=== PATIENT | male | born 1960 | race Caucasian/White ===

== ENCOUNTER 2022-10-25 11:37 | Emergency (ER) | payer MEDICARE, BC, SELFPAY ==
[2022-10-25] VITALS (21 sets, daily range): BP systolic 72–124; BP diastolic 56–99; PULSE 64–160; RESP 11–24; TEMP 36.6; O2SAT 89–98; BMI 27.3
--- NOTE | 2022-10-25 11:50 | ED.ARRPALP ---
HPI - Arrhythmia/Palpitations General Time Seen by Provider: 11:50 Date Seen: 10/25/22 Chief Complaint: Arrhythmia/Palpitations Stated Complaint: afib Time Seen by Provider: 10/25/22 11:44 Source: patient and RN notes reviewed Mode of arrival: ambulatory Limitations: no limitations History of Present Illness HPI narrative: Patient is a 62-year-old male coming in with concern for episode of atrial fibrillation. Patient awoke this morning at 6, got up to go to the bathroom and went to lay back on the couch. He was not in any arrhythmia disturbance at that time. When he woke up from sleeping on the couch, could feel he was in atrial fibrillation. He believes he has been cardioverted before, does report to ablation is a. He is followed by [facility] [place]. He has a little shortness of breath with walking but none at rest, no chest pain. Can feel his heart racing but otherwise no acute symptoms with this. No alcohol use, has not been ill with anything. MD complaint: atrial fibrillation Related Data Home Medications Medication Instructions Recorded Confirmed amlodipine 10 mg tablet 10 mg PO DAILY 10/25/22 10/25/22 atorvastatin 20 mg tablet 20 mg PO DAILY 10/25/22 10/25/22 carbamazepine 200 mg tablet PO 10/25/22 dofetilide 500 mcg capsule 500 mcg PO 10/25/22 lisinopril 40 mg tablet 40 mg PO DAILY 10/25/22 10/25/22 metoprolol tartrate 25 mg tablet mg PO 10/25/22 omeprazole 20 mg capsule,delayed 20 mg PO DAILY 10/25/22 10/25/22 release tamsulosin 0.4 mg capsule 0.4 mg PO DAILY 10/25/22 10/25/22 warfarin 5 mg tablet mg PO 10/25/22 Allergies Allergy/AdvReac Type Severity Reaction Status Date / Time phenytoin [From Dilantin] Allergy Mild Verified 10/25/22 11:46 Review of Systems Status of ROS: Reports: 6 or more systems reviewed and unremarkable except as noted in History and below PFSH PFS Social History Smoking Status: Unknown if ever smoked Exam Const: Vital Signs, click to edit/add: Vital Signs - 24 hr 10/25/22 11:43 10/25/22 11:53 10/25/22 12:30 Temperature 97.8 F Pulse Rate 153 H Pulse Rate [Pulse Oximeter] 160 H Respiratory Rate 18 Blood Pressure 99/79 Blood Pressure [Ri ght Upper Arm] 116/99 H Pulse Oximetry 95 94 94 Oxygen Delivery Me thod Room Air 10/25/22 12:31 10/25/22 12:32 10/25/22 12:45 Temperature Pulse Rate 152 H 153 H 151 H Pulse Rate [Pulse Oximeter] Respiratory Rate Blood Pressure 103/81 Blood Pressure [Ri ght Upper Arm] Pulse Oximetry 94 94 93 Oxygen Delivery Me thod 10/25/22 12:46 10/25/22 12:47 10/25/22 13:00 Temperature Pulse Rate 150 H 151 H 132 H Pulse Rate [Pulse Oximeter] Respiratory Rate Blood Pressure 94/78 Blood Pressure [Ri ght Upper Arm] Pulse Oximetry 91 89 95 Oxygen Delivery Me thod 10/25/22 13:01 10/25/22 13:02 10/25/22 13:08 Temperature Pulse Rate 135 H 114 H 68 Pulse Rate [Pulse Oximeter] Respiratory Rate 23 Blood Pressure 79/56 L 72/62 L 95/76 Blood Pressure [Ri ght Upper Arm] Pulse Oximetry 95 91 98 Oxygen Delivery Me thod 10/25/22 13:09 10/25/22 13:13 10/25/22 13:14 Temperature Pulse Rate 67 67 66 Pulse Rate [Pulse Oximeter] Respiratory Rate 12 18 17 Blood Pressure 114/88 120/87 Blood Pressure [Ri ght Upper Arm] Pulse Oximetry 97 97 97 Oxygen Delivery Me thod 10/25/22 13:15 10/25/22 13:17 Temperature Pulse Rate 64 67 Pulse Rate [Pulse Oximeter] Respiratory Rate 11 L 24 Blood Pressure 124/86 Blood Pressure [Ri ght Upper Arm] Pulse Oximetry 98 96 Oxygen Delivery Me thod This 8-year-old male is alert interactive no apparent distress. Sclera clear, face atraumatic, able speak in complete sentences. No GI venous tension, no thyromegaly masses or nodules. Lungs are clear, good air entry, no wheezing or crackles. CV is fast irregular, cannot hear any murmur. Abdomen is soft, no rebound or guarding, no organomegaly. No lower extremity edema. Documenting provider has reviewed patient's vital signs: yes Course Course ED Course: Patient is in atrial fibrillation with RVR. He will be on cardiac monitoring, pulse oximetry. Will get a portable chest x-ray to ensure no overt CHF. Will get full complement of labs. Establish an IV, give some IV fluids and plan for 5 mg IV metoprolol to slow the rhythm. May proceed with cardioversion since he is anticoagulated and he knows the onset of this. Will make sure electrolytes and troponin are okay. Reevaluation(s) Time of Reevaluation #1: 13:09 Reevaluation #1: Nursing staff came to get me as his blood pressure was worsening, most recent 1 was 72/62. Went to assess the patient, he is lying on the bed and is not feeling any chest pain, no shortness of breath, not lightheaded. He has had about 1/2 of the normal saline in. He has not gotten any IV metoprolol as blood pressures have been trending down. As we are in they were preparing for a emergent cardioversion due to hypotension, patient sat up to have his pads put on, had a brief little pause on the monitor, PVC and then went into sinus rhythm on the monitor. We will be getting a confirmatory EKG. He states he can feel that he has converted back into sinus. Will also update [facility], have staff paging them for me. Time of Reevaluation #2: 13:48 Reevaluation #2: Patient remains in sinus rhythm. Have reviewed my conversation with the customer insight analyst at [place]. Plan will be to discharge to home for outpatient follow-up. Return to ER with recurrent atrial fibrillation episodes. Consultations Consultation #1: Spoke with Dr. Sommer on-call for [facility]. Patient does see Dr. Mei in EP. He is on Tikosyn, last had normal biventricular function 2016. Thus, echo should be updated. They will get a note in to the EP Clinic for follow-up. Time: 13:24 Vital Signs Vital signs: Initial Vital Signs Temperature 97.8 F 10/25/22 11:43 Temperature Source Temporal Artery Scan 10/25/22 11:43 Pulse Rate 160 H 10/25/22 11:43 Respiratory Rate 18 10/25/22 11:43 Blood Pressure 116/99 H 10/25/22 11:43 Blood Pressure Mean 104 10/25/22 11:43 Blood Pressure Position Supine 10/25/22 11:43 Pulse Oximetry 95 10/25/22 11:43 Oxygen Delivery Method Room Air 10/25/22 11:43 Vital Signs Temperature 97.8 F 10/25/22 11:43 Pulse Rate 160 H 10/25/22 11:43 Respiratory Rate 18 10/25/22 11:43 Blood Pressure 116/99 H 10/25/22 11:43 Pulse Oximetry 95 10/25/22 11:43 Oxygen Delivery Method Room Air 10/25/22 11:43 Temperature 97.8 F 10/25/22 11:43 Pulse Rate 67 10/25/22 13:17 Respiratory Rate 24 10/25/22 13:17 Blood Pressure 124/86 10/25/22 13:17 Pulse Oximetry 96 10/25/22 13:17 Oxygen Delivery Method Room Air 10/25/22 11:43 MDM - Arrhythmia/Palpitations Lab Data Attestation: I reviewed the patient's lab results. Labs: Lab Results 10/25/22 10/25/22 Range/Units 11:54 12:15 WBC 7.64 (4.50-11.00) K/uL RBC 5.87 (4.30-5.90) m/uL Hgb 18.5 H (13.5-17.5) gm/dL Hct 53.7 H (37.0-53.0) % MCV 92 (80-100) fL MCH 32 (26-34) pg MCHC 35 (32-36) gm/dL RDW Coeff of Eze 12.5 (11.5-15.5) % Plt Count 239 (140-440) K/uL Neut % (Auto) 81.9 H (42.0-72.0) % Lymph % (Auto) 11.0 L (20-44) % [place] % (Auto) 6.0 (0.0-11.0) % Eos % (Auto) 0.7 (0.0-7.0) % Baso % (Auto) 0.1 (0.0-3.0) % Neut # (Auto) 6.30 (1.7-7.0) K/uL Lymph # (Auto) 0.80 L (0.90-2.90) K/uL [place] # (Auto) 0.50 (0.00-0.90) K/UL Eos # (Auto) 0.05 (0.00-0.50) K/uL Baso # (Auto) 0.01 (0.00-0.30) K/uL Abs Immat Gran (auto) 0.02 (0.00-0.30) K/uL Imm/Tot Granulo (auto) 0.3 % INR 2.10 H (0.91-1.10) Sodium 137 (135-149) mmol/L Potassium 4.3 (3.6-5.1) mmol/L Chloride 105 (96-114) mmol/L Carbon Dioxide 24 (20-32) mmol/L Anion Gap 8 (7-15) mEq/L BUN 18 (7-30) mg/dL Creatinine 0.7 (0.5-1.5) mg/dL Estimated Creat Clear 115.87 Estimated GFR 105 ml/min Glucose 153 H (60-115) mg/dL Calcium 10.6 (8.4-10.6) mg/dL Magnesium 2.4 (1.5-2.6) mg/dL Total Bilirubin 0.6 (0.1-1.5) mg/dL AST 54 H (12-35) U/L ALT 38 (4-50) U/L Alkaline Phosphatase 79 (40-150) U/L NT-Pro-B Natriuret Pep 716 pg/mL Total Protein 7.3 (6.0-8.3) g/dL Albumin 4.3 (3.3-5.0) g/dL TSH 1.150 (0.270-4.200) uIU/mL POC Troponin I 0.02 (0.01-0.04) ng/ml Imaging Data Chest x-ray: Attestation: I have reviewed the pertinent imaging results. My impression: Do not see any CHF, cardiac silhouette looks borderline enlarged. Await Radiology over-read. Radiologist's impression: Patient: SARA RAMIRES Facility:?[facility] Patient ID:?[id number] Site Patient ID:?[id number]. Site :?[id number] Study:?XRay Chest 1VIEW-10/25/2022 12:13:42 PM Ordering Physician:Katharina Hernández Final Report: Indication: Arrythmia Technique: Chest 1 view Comparison: Chest x-ray 11/13/2017 Findings/Impression: Cardiovascular and mediastinum: Borderline cardiomegaly with aortic tortuosity and atherosclerotic calcification. Lungs and pleural space: Lungs are clear. No sign of infiltrate or mass. No sign of pleural effusion. No pneumothorax. Bones and soft tissues: Status post median sternotomy. Old healed left mid clavicular fracture. Widening of the right acromioclavicular space suggesting prior trauma or distal clavicular resection. Narrowing of the right acromial humeral distance consistent with rotator cuff disease. Dictated by Brown Chandler MD @ 10/25/2022 12:43:34 PM (Electronic Signature) ECG Data Attestation: I personally reviewed and interpreted this ECG as follows: ECG interpretation date: 10/25/22 ECG interpretation time: 12:00 Prior ECG tracings: not available for review (Regular narrow complex tachycardia at 155 beats per minute. This could be a flutter, seems quite regular to be a atrial fibrillation.) Interpretation: Patient has some natural slowing of his rhythm on his own on the monitor, nursing staff obtained a followup EKG that shows likely atrial fibrillation, do see an occasional P-wave that I believe I am seen in some of the larger pauses between QRS complexes. Rate is 118. This EKG is from 12:53 p.m. Follow-up EKG at 1:12 p.m. is showing a sinus rhythm, 65 beats per minute, no ST or T-wave changes that are concerning. Discharge Plan Discharge Clinical Impression: Atrial fibrillation with rapid ventricular response Patient Disposition: Home, Self-Care Condition: Stable Instructions: A-fib (Atrial Fibrillation) (ED) Additional Instructions: Need to get scheduled in clinic for outpatient follow-up, have them schedule you for an updated echo. You should be hearing from the electrophysiology clinic at [facility] for follow-up appointment. Stay on your current medications. INR today was 2.1. If you have recurrent arrhythmia episodes, return for further evaluation in the interim. Activity Level: Activity as Tolerated Prescriptions: No Action atorvastatin 20 mg tablet 20 mg PO DAILY carbamazepine 200 mg tablet PO tamsulosin 0.4 mg capsule 0.4 mg PO DAILY amlodipine 10 mg tablet 10 mg PO DAILY warfarin 5 mg tablet PO omeprazole 20 mg capsule,delayed release(DR/EC) 20 mg PO DAILY lisinopril 40 mg tablet 40 mg PO DAILY dofetilide 500 mcg capsule 500 mcg PO metoprolol tartrate 25 mg tablet PO Follow Up/Referrals: Paul Olson MD [Primary Care Provider] - Stand Alone Forms: [employer] Info Instructions
--- NOTE | 2022-10-25 11:54 | CRLHL7_ITS ---
For Patients: As a result of the Century Cures Act, medical imaging exams and procedure reports are released immediately into your electronic medical record. You may view this report before your referring provider. If you have questions, please contact your health care provider. Indication: Arrythmia Technique: Chest 1 view Comparison: Chest x-ray 11/13/2017 Findings/Impression: Cardiovascular and mediastinum: Borderline cardiomegaly with aortic tortuosity and atherosclerotic calcification. Lungs and pleural space: Lungs are clear. No sign of infiltrate or mass. No sign of pleural effusion. No pneumothorax. Bones and soft tissues: Status post median sternotomy. Old healed left mid clavicular fracture. Widening of the right acromioclavicular space suggesting prior trauma or distal clavicular resection. Narrowing of the right acromial humeral distance consistent with rotator cuff disease. Dictated by Brown Chandler MD @ 10/25/2022 12:43:34 PM (Electronically Signed)
[2022-10-25 12:29] LABS: Basophils Absolute Auto 0.01 K/uL (0.00-0.30); Basophils Percent Auto 0.1 % (0.0-3.0); Eosinophils Absolute Auto 0.05 K/uL (0.00-0.50); Eosinophils Percent Auto 0.7 % (0.0-7.0); Hematocrit 53.7 % (37.0-53.0); Hemoglobin* 18.5 gm/dL (13.5-17.5); Immature Granulocytes Abs Auto 0.02 K/uL (0.00-0.30); Immature Granulocytes Pct Auto 0.3 %; Mean Corpuscular HGB Conc 35 gm/dL (32-36); Mean Corpuscular Hemoglobin 32 pg (26-34); Mean Corpuscular Volume 92 fL (80-100); Neutrophils Percent Auto 81.9 % (42.0-72.0); Platelet Count* 239 K/uL (140-440); RDW Coefficient of Variation % 12.5 % (11.5-15.5); Red Blood Count 5.87 m/uL (4.30-5.90); White Blood Count* 7.64 K/uL (4.50-11.00)
[2022-10-25 12:35] LABS: Slide Review Reflex No
[2022-10-25 12:35] LABS: Troponin, Point-of-Care* 0.02 ng/ml (0.01-0.04)
[2022-10-25] MEDS: 0.9 % SODIUM CHLORIDE 1000 ml 1,000 ML IV (12:37)
[2022-10-25 12:41] LABS: Albumin* 4.3 g/dL (3.3-5.0); Chloride* 105 mmol/L (96-114)
[2022-10-25 12:42] LABS: Potassium* 4.3 mmol/L (3.6-5.1); Prothrombin Time 24.7 Seconds; Sodium* 137 mmol/L (135-149)
[2022-10-25 12:44] LABS: Alkaline Phosphatase* 79 U/L (40-150); Anion Gap 8 mEq/L (7-15); Aspartate Amino Transferase* 54 U/L (12-35); Bilirubin Total* 0.6 mg/dL (0.1-1.5); Blood Urea Nitrogen* 18 mg/dL (7-30); Carbon Dioxide* 24 mmol/L (20-32); Creatinine* 0.7 mg/dL (0.5-1.5); Est. Creatinine Clearance* 115.87; Estimated Glomerular Filt Rate 105 ml/min; Glucose* 153 mg/dL (60-115); Total Protein* 7.3 g/dL (6.0-8.3)
[2022-10-25 12:45] LABS: Alanine Aminotransferase* 38 U/L (4-50); Calcium* 10.6 mg/dL (8.4-10.6); Magnesium* 2.4 mg/dL (1.5-2.6)
[2022-10-25 12:54] LABS: NT Pro B Type NatriureticPept* 716 pg/mL
--- NOTE | 2022-10-25 12:56 | ED.NURSE ---
Pt HR slowing to 120-130 bpm. Repeat EKG done and shown to .
--- NOTE | 2022-10-25 13:10 | ED.NURSE ---
Pt BPs noted to be trending lower, 70's systolic. MD Franz notified. MD Franz and MD Jasso in room to exam pt and preparing for emergent cardioversion. Pacer pads applied to pt and end tidal NC applied. When pt sat up in bed for pacer pad application to back, pt HR converted back to NSR. Pt BP improved to 120 systolic. Repeat EKG done and given to .
== END 2022-10-25 13:59 | disposition home or self-care (01) ==
PROVIDERS: Emergency Provider Family Medicine; PCP Family Medicine
DX: I48.91 Unspecified atrial fibrillation (principal)
CPT/HCPCS: 36415; 71045; 80053; 83735; 83880; 84443; 84484; 85025; 85610; 93005; 94761; 96361; 96374; 99284; 99285; 99291; J7030

== ENCOUNTER 2022-11-18 17:21 | Emergency (ER) | payer MEDICARE, BC, SELFPAY ==
[2022-11-18] VITALS (9 sets, daily range): BP systolic 97–128; BP diastolic 70–87; PULSE 54–166; RESP 24; TEMP 36.1; O2SAT 90–99; BMI 28.9
--- NOTE | 2022-11-18 17:53 | ED.GENADULT ---
HPI - General Adult General Chief complaint: Arrhythmia/Palpitations Stated complaint: Afib Time Seen by Provider: 11/18/22 17:42 History of Present Illness HPI narrative: Pt reports being in A Fib since 1529. Diaphoretic in triage. SOB, dizzy. Was recently in 62-year-old man presenting to the emergency department with concern of atrial fibrillation. He is quite clear that this started about 2-1/2 hours ago. He feels lightheaded little short of breath although at rest not so much, he notes himself to be sweaty. Was cardioverted in this department 3 weeks ago. History of a number of ablation set [place]. Known history of atrial fibrillation with RVR. Otherwise in usual state of health. No weight gain in fact he says he has been losing weight generally. He is saying just shock me. He admits that may have not kept up with his fluid intake today and was experiencing a little more stress otherwise. Related Data Home Medications Medication Instructions Recorded Confirmed amlodipine 10 mg tablet 10 mg PO DAILY 10/25/22 11/18/22 atorvastatin 20 mg tablet 20 mg PO DAILY 10/25/22 11/18/22 carbamazepine 200 mg tablet PO 10/25/22 dofetilide 500 mcg capsule 500 mcg PO Q12H 10/25/22 11/18/22 lisinopril 40 mg tablet 40 mg PO DAILY 10/25/22 11/18/22 metoprolol tartrate 25 mg tablet 25 mg PO 10/25/22 omeprazole 20 mg capsule,delayed 20 mg PO DAILY 10/25/22 11/18/22 release tamsulosin 0.4 mg capsule 0.4 mg PO DAILY 10/25/22 11/18/22 warfarin 5 mg tablet mg PO 10/25/22 Allergies Allergy/AdvReac Type Severity Reaction Status Date / Time phenytoin [From Dilantin] Allergy Mild Verified 11/18/22 17:56 Review of Systems Status of ROS: Reports: 6 or more systems reviewed and unremarkable except as noted in History and below PFSH PFSH Social History Smoking Status: Unknown if ever smoked Do you use any of these nicotine containing products: None Second hand tobacco smoke exposure: No How often do you have a drink containing alcohol: never How often do you have six or more drinks on one occasion: Never AUDIT-C Alcohol total score: 0 Non-prescribed substance use: denies use service: No Exam Narrative: Exam Narrative: Pleasant. Seems a little uncomfortable. Conversing easily. Subtly breathless though. Oropharynx is low sticky. Lungs are clear. Heart is in a tachycardic I believe generally regular rhythm. Skin is warm and dry though little sticky over the neck and head. Scattered skin tags in spears hemangiomas. There is prominent mid left clavicle. Extremities are well perfused. Without edema lower extremities. Const: Vital Signs, click to edit/add: Vital Signs - 24 hr 11/18/22 17:40 11/18/22 18:03 11/18/22 18:28 Temperature 97 F L Pulse Rate 64 Pulse Rate [Pulse Oximeter] 166 H Respiratory Rate 24 Blood Pressure Blood Pressure [Ri ght Upper Arm] 97/70 Pulse Oximetry 99 97 94 Oxygen Delivery Me thod Room Air 11/18/22 18:30 11/18/22 18:31 11/18/22 18:45 Temperature Pulse Rate 67 54 L 65 Pulse Rate [Pulse Oximeter] Respiratory Rate Blood Pressure 127/76 Blood Pressure [Ri ght Upper Arm] Pulse Oximetry 94 90 Oxygen Delivery Me thod 11/18/22 18:46 11/18/22 19:00 11/18/22 19:02 Temperature Pulse Rate 64 64 64 Pulse Rate [Pulse Oximeter] Respiratory Rate Blood Pressure 128/79 125/87 Blood Pressure [Ri ght Upper Arm] Pulse Oximetry 96 95 Oxygen Delivery Me thod Documenting provider has reviewed patient's vital signs: yes Course Vital Signs Vital signs: Initial Vital Signs Temperature 97 F L 11/18/22 17:40 Temperature Source Temporal Artery Scan 11/18/22 17:40 Pulse Rate 166 H 11/18/22 17:40 Pulse Rhythm Irregularly Irregular 11/18/22 17:40 Pulse Strength 3+ Normal 11/18/22 17:40 Respiratory Rate 24 11/18/22 17:40 Blood Pressure 97/70 11/18/22 17:40 Blood Pressure Mean 79 11/18/22 17:40 Blood Pressure Position Sitting 11/18/22 17:40 Pulse Oximetry 99 11/18/22 17:40 Oxygen Delivery Method Room Air 11/18/22 17:40 Vital Signs Temperature 97 F L 11/18/22 17:40 Pulse Rate 166 H 11/18/22 17:40 Respiratory Rate 24 11/18/22 17:40 Blood Pressure 97/70 11/18/22 17:40 Pulse Oximetry 99 11/18/22 17:40 Oxygen Delivery Method Room Air 11/18/22 17:40 Temperature 97 F L 11/18/22 17:40 Pulse Rate 64 11/18/22 19:02 Respiratory Rate 24 11/18/22 17:40 Blood Pressure 125/87 11/18/22 19:02 Pulse Oximetry 95 11/18/22 19:02 Oxygen Delivery Method Room Air 11/18/22 17:40 Medical Decision Making MDM Narrative Medical decision making narrative: Is mildly hypotensive with review of record here and the diaphoretic, uncomfortable. I think this would qualify for emergent cardioversion. I would like to verify INR. Was little subtherapeutic on 10/25. Reviewing EKG this does appear to be atrial fibrillation in RVR rate 146. Initiating fluid bolus and diltiazem. Hoping some rate control also result in some improvement of blood pressure. Have requested anesthesia support if available to assist with cardioversion. He reports last p.o. at 11 30 which will be nearly 7 hours ago. Has had some sips of water since. Pulse has dropped into the 110s and blood pressure improved to 110 systolic as reported to me after dosing with diltiazem. Awaiting arrival of Anesthesia. INR is 2.45 With the arrival of anesthesia Mr. Gross spontaneously converted to what looks to be a sinus rhythm, at a rate of 63. This is similar to what occurred on October 25 after IV fluids and IV metoprolol. I did discuss this case with Cardiology on-call through [facility]. Indicating complicated history with close follow-up and ?active med management?, no further recommendations or change in care recommended. Has follow-up in 5-6 weeks for repeat echocardiogram and visit with electrophysiology. In my conversation with Mr. Gross, it appears that there may be some gap in coverage given how takes his metoprolol tartrate as 1 tab in the morning and then 2 tabs in the evening. He believes that his other episodes have occurred in later evening or night. Feels much improved after spontaneous conversion. Blood pressures and pulses are good and stable. Pulse is in low 60s any and recommendations would not be to increase metoprolol at this time. Lab Data Labs: Lab Results 11/18/22 11/18/22 Range/Units 18:11 18:26 Hgb 19.2 H (13.5-17.5) gm/dL INR 2.45 H (0.91-1.10) Sodium 138 (135-149) mmol/L Potassium 3.7 (3.6-5.1) mmol/L Chloride 105 (96-114) mmol/L Carbon Dioxide 21 (20-32) mmol/L Anion Gap 12 (7-15) mEq/L BUN 22 (7-30) mg/dL Creatinine 0.8 (0.5-1.5) mg/dL Estimated Creat Clear 95.00 Estimated GFR 101 ml/min Glucose 132 H (60-115) mg/dL Calcium 10.6 (8.4-10.6) mg/dL POC Troponin I 0.01 (0.01-0.04) ng/ml ECG Data Attestation: I personally reviewed and interpreted this ECG as follows: (1. Atrial fibrillation with RVR at 146 2. After spontaneous cardioversion looks to be in a normal sinus with subtle P waves. Rate of 63) Discharge Plan Discharge Clinical Impression: Atrial fibrillation with rapid ventricular response Patient Disposition: Home, Self-Care Condition: Improved Instructions: A-fib (Atrial Fibrillation) (ED) Additional Instructions: Yes. Do focus on hydration. Dehydration makes cells cranky/irritable and they can do stuff like what you saw today... But I think you know this. You might consider taking your metoprolol as 1 tablet every 8 hours. Please follow-up as scheduled on 12/28 for your echocardiogram and on 12/[address] Machado. If you go into atrial fibrillation again, consider taking an extra tablet of metoprolol and reassessing in an hour or so. But if you're feeling particularly bad, do not hesitate to return to the emergency department. Prescriptions: No Action atorvastatin 20 mg tablet 20 mg PO DAILY carbamazepine 200 mg tablet PO tamsulosin 0.4 mg capsule 0.4 mg PO DAILY amlodipine 10 mg tablet 10 mg PO DAILY warfarin 5 mg tablet PO omeprazole 20 mg capsule,delayed release(DR/EC) 20 mg PO DAILY lisinopril 40 mg tablet 40 mg PO DAILY dofetilide 500 mcg capsule 500 mcg PO Q12H metoprolol tartrate 25 mg tablet 25 mg PO Follow Up/Referrals: Paul Olson MD [Primary Care Provider] - Stand Alone Forms: [employer] Info Instructions
[2022-11-18] MEDS: dilTIAZem 5 MG/ML inj 20 MG IVP (18:15)
[2022-11-18] MEDS: 0.9 % SODIUM CHLORIDE 1000 ml 1,000 ML 2000 ML IV (18:15)
[2022-11-18 18:28] LABS: Troponin, Point-of-Care* 0.01 ng/ml (0.01-0.04)
[2022-11-18 18:33] LABS: Hemoglobin* 19.2 gm/dL (13.5-17.5)
[2022-11-18 18:45] LABS: Chloride* 105 mmol/L (96-114); Sodium* 138 mmol/L (135-149)
[2022-11-18 18:46] LABS: Potassium* 3.7 mmol/L (3.6-5.1)
[2022-11-18 18:48] LABS: Creatinine* 0.8 mg/dL (0.5-1.5); Estimated Glomerular Filt Rate 101 ml/min
[2022-11-18 18:49] LABS: Anion Gap 12 mEq/L (7-15); Blood Urea Nitrogen* 22 mg/dL (7-30); Calcium* 10.6 mg/dL (8.4-10.6); Carbon Dioxide* 21 mmol/L (20-32); Glucose* 132 mg/dL (60-115); INR 2.45 (0.91-1.10); Prothrombin Time 27.8 Seconds
--- NOTE | 2022-11-18 18:50 | ED.NURSE ---
Patient converted into sinus rhythm. EKG completed.
--- NOTE | 2022-11-18 19:40 | ED.NURSE ---
Patient received Diltiazem 20mg and normal saline, 1,000ml/hr at 1815. RN that administered unable to document due to technical issue.
[2022-11-19 00:45] LABS: Magnesium* 2.4 mg/dL (1.5-2.6)
== END 2022-11-18 19:39 | disposition home or self-care (01) ==
PROVIDERS: Emergency Provider Family Medicine; PCP Family Medicine
DX: I48.91 Unspecified atrial fibrillation (principal)
CPT/HCPCS: 36415; 80048; 83735; 84484; 85018; 85610; 93005; 94761; 96374; 99284; J7030

== ENCOUNTER 2024-01-10 09:45 | Outpatient (RCR) | payer MEDICARE, BC, SELFPAY | END 2024-05-09 23:59 | disposition home or self-care (01) | PROVIDERS: PCP Family Medicine; Visit Provider Family Medicine | DX: R26.81 Unsteadiness on feet (principal); R26.89 Other abnormalities of gait and mobility; R53.1 Weakness; M79.606 Pain in leg, unspecified; Z51.89 Encounter for other specified aftercare | CPT/HCPCS: 97110; 97112; 97161 ==